=== PATIENT | female | born 1995 | race Caucasian/White ===

== ENCOUNTER 2018-01-13 12:02 | Emergency (ER) | payer OTHER ==
--- NOTE | 2018-01-13 13:23 | RAD ---
3 VIEWS LEFT ANKLE: Date: 01/13/18 HISTORY: Left ankle pain after injury. FINDINGS: The ankle mortise is congruent. There is no fracture, dislocation, or other osseous abnormality invol ving the left ankle. There is lucency overlying the base of the right second metatarsal, but this is likely projectional. If there is point tenderness at the base of the second metatarsal, dedicated vie ws left foot are recommended for further evaluation. However, this lucency does not appear to represe nt a fracture. IMPRESSION: 1. No acute osseous abnormality involving the left ankle. 2. Lucency base of second metatarsal noted on the oblique view, which is probably artifactual. If th ere is pain in this region, dedicated views left foot are recommended for further evaluation. POS: [facility]
== END 2018-01-13 13:33 | disposition home or self-care (01) ==
LOC: ERS 12:02
DX: S93.402A Sprain of unspecified ligament of left ankle, initial encounter (principal); J45.909 Unspecified asthma, uncomplicated; X50.1XXA Overexertion from prolonged static or awkward postures, initial encounter